=== PATIENT | female | born 1950 | race Caucasian/White ===

== ENCOUNTER 2017-07-19 10:08 | Inpatient (IN) ==
[2017-07-19] MEDS ORDERED: ENOXAPARIN 100 MG/ML SYRINGE SUBCUT STA (10:23)
[2017-07-19] MEDS ORDERED: MORPHINE 2 MG/1 ML SYRINGE IV PRN ×2 (10:23→18:14)
[2017-07-19] MEDS ORDERED: ASPIRIN 325 MG TABLET PO STA (10:23)
[2017-07-19] MEDS ORDERED: ONDANSETRON 4 MG/2 ML VIAL IV PRN ×2 (10:23→12:34)
[2017-07-19] MEDS ORDERED: ALUM/MAG/SIMETH/LIDO VISC 1:1 30 ML BOTTLE PO STA (10:27)
[2017-07-19] MEDS ORDERED: FAMOTIDINE 20 MG/2 ML VIAL IV STA (10:27)
[2017-07-19] MEDS ORDERED: NITROGLYCERIN SL 0.4 MG TABLET SL PRN (10:27)
[2017-07-19] MEDS ORDERED: NITROGLYCERIN 2% OINT 1 INCH/GM PACK TOP STA (10:27)
[2017-07-19] MEDS ORDERED: ENOXAPARIN 100 MG/ML SYRINGE SUBCUT ONE (10:31)
[2017-07-19] MEDS ORDERED: ASPIRIN 325 MG TABLET ONE (10:31)
--- NOTE | 2017-07-19 10:33 | Emergency Department Note ---
Cecilio Huertas Manpreet, am scribing for, and in the presence of, Shai Handley MD 10: 31. Emmanuelle Huertas James D, MD, personally performed the services described in this documentation, ascribed by Tomasz Hernandes in my presence, and it is both accurate and complete . Arrival - Arrival Chief Complaint: Chest Pain Stated Complaint: severe chest pains ED Nursing Triage Note: c/o mid-sternal chest pain radiating into bilateral arms onset 0930 while working. Describes as pressure. +shortness of breath. + nausea. +diaphoresis. Hyperventaliting at present. Mode of Arrival: Wheelchair Limitations: No Limitations Source: Patient Time Seen by Provider: 07/19/17 10:23 - History of Present Illness HPI Narrative: Pt is a 67 y/o female who presents to the ED with CC of mid-sternal CP onset at 0930 at work today. Pt initially thought the pain was just acid reflux but was concerned and called EMS after it did not go away. Pt states on the way to the ED, she was walking up a hill which worsened the pain. Pt also c/o SOB, nausea, and "heaviness to arms." Pt denies cough, dysuria, fever, or chills. No other pains/complaints reported to the ED. Onset (ago): hour(s) (at 0930) Consistency: constant Severity: moderate Quality: burning Date of Last Menstrual Period: hyst Allergies/Adverse Reactions: Allergies Allergy/AdvReac Type Severity Reaction Status Date / Time No Known Allergies Allergy Verified 07/19/17 10:24 Home Medications: Home Medications Medication Instructions Recorded Confirmed Type Esomeprazole Magnesium [Nexium] 40 mg PO DAILY 10/12/15 11/21/15 History Hydroxychloroquine [Plaquenil] 200 mg PO BID 10/12/15 11/21/15 History Butalb/Acetaminophen/Caffeine 2 each PO Q6-8H #20 tablet 11/21/15 Rx [Esgic 50-325-40 mg Tablet] Promethazine Supp [Phenergan Supp] 25 mg RECTAL Q6H #16 supp 11/21/15 Rx Review of System - Review of System 12 point system: reviewed and no additional remarkable complaints except as stated - Review of System Constitutional: Absent: chills, fever Respiratory: Present: respiratory distress. Absent: cough Cardiovascular: Present: chest pain Gastrointestinal: Absent: abdominal pain, nausea, vomiting, diarrhea Genitourinary female: Absent: dysuria Musculoskeletal: Absent: arm pain ("Heaviness to arms") Neurological: Absent: headache, weakness, numbness ("Heaviness to arms") Medical,Surgical,& Family Hx - Medical History Rheumatology: History of;: Rheumatoid Arthritis Gastrointestinal: History of: GERD - Surgical History Reproductive Surgeries: Surgical HX of;: Hysterectomy - Social History Smoking Status: Never smoker Frequency of Alcohol Use: None Type of Drug Use: None Exam Vital Signs: Vital Signs Temperature 97.9 F 07/19/17 10:10 Pulse Rate 91 H 07/19/17 10:10 Respiratory Rate 24 07/19/17 10:10 Blood Pressure 148/78 07/19/17 10:10 O2 Sat by Pulse Oximetry 100 07/19/17 10:10 GENERAL: This is a well-nourished well-developed white female in no apparent distress. VITAL SIGNS: Reviewed HEENT: Head is atraumatic and normocephalic. Pupils are equal round react to light. Extraocular movements are intact. Oropharynx is benign with moist mucous membranes. NECK: Neck is soft and supple without tenderness. There are no masses. There is no lymphadenopathy. LUNGS: Lungs are clear to auscultation. Chest rises symmetrically. There is minimal chest wall tenderness anteriorly. CV: Heart is regular rate and rhythm without murmurs rubs or gallops. ABDOMEN: Abdomen is soft, nontender to palpation. There are no abdominal abnormal masses palpated. There is no organomegaly. Bowel sounds are present and active. SKIN: Skin is warm and dry. No rash. EXTREMITIES: Patient has full range of motion without tenderness. There is no pedal edema. NEUROLOGIC: Awake alert and oriented 4. Cranial nerves II through XII are grossly intact. Motor is 5 over 5 in all extremities bilaterally. Course - Consultations Consultation #1: Discussed with Dr. Arreguin. Patient will be admitted to their service. Initial orders written for him. Care will be assumed by him upon arrival to the [facility]. Time: 11:27 Results - Labs CBC & BMP: 07/19/17 10:35 Lab Results: I have reviewed the patients labs Labs: Laboratory Tests 07/19/17 10:35 Troponin I < 0.015 - EKG EKG results: interpreted by ERMD (EKG: Sinus rhythm with sinus arrhythmia, rate 86, nonspecific ST-T wave changes.) - Diagnostic Findings Procedure: Chest x-ray: image reviewed by me (No infiltrates, no pleural effusions.) Disposition Clinical Impression: Chest pain
[2017-07-19] MEDS ORDERED: ONDANSETRON 4 MG/2 ML VIAL ONE (10:44)
[2017-07-19] MEDS ORDERED: MORPHINE 2 MG/1 ML SYRINGE ONE (10:44)
[2017-07-19] MEDS ORDERED: NITROGLYCERIN 2% OINT 1 INCH/GM PACK TOP ONE (10:54)
[2017-07-19] MEDS ORDERED: FAMOTIDINE 20 MG/2 ML VIAL IV ONE (10:54)
[2017-07-19] MEDS ORDERED: ALUM/MAG/SIMETH/LIDO VISC 1:1 30 ML BOTTLE PO ONE (10:54)
[2017-07-19 10:56] LABS: Basophils # 0.1 10*3/uL (0.0-0.2); Basophils % 1.3 % (0.0-0.8); Eosinophils # 0.1 10*3/uL (0.0-0.87); Eosinophils % 2.4 % (0.00-10.9); Hematocrit 42.2 VOL% (35.7-47.0); Hemoglobin 13.9 GM/DL (12.0-16.0); Immature Granulocytes % 0.2 %; Immature Granulocytes Absolute 0.01 #; Lymphocytes # 1.6 10*3/uL (1.4-4.0); Lymphocytes % 34.8 % (21.3-54.2); Mean Corpuscular HGB Conc 32.9 GM/DL (32-36); Mean Corpuscular Hemoglobin 30 PG (27-34); Mean Corpuscular Volume 91.1 FL (87-102); Mean Platelet Volume 10.2 FL (9.6-12.0); Monocytes # 0.4 10*3/uL (0.11-0.8); Neutrophils # 2.5 10*3/uL (1.4-7.4); Neutrophils % 53.3 % (38.7-73.9); Platelet Count 230 T/CUMM (130-400); Red Blood Count 4.63 MC/CUMM (3.8-5.5); Red Cell Distribution Width 12.4 % (9.3-17.3); White Blood Count 4.7 T/CUMM (4-12)
[2017-07-19] MEDS ORDERED: LORazepam 2 MG/1 ML VIAL ONE (11:04)
--- NOTE | 2017-07-19 11:06 | XRay Report ---
Portable chest Exam date: 07/19/2017 10:23 AM Indication: Shortness of breath, cough chest pain Comparison: January 11, 2010 Findings: Cardiomediastinal contours are stable. Lungs are clear bilaterally. No acute osseous abnormalities. Visualized upper abdomen demonstrates no acute pathology. Impression: No acute cardiopulmonary findings PROCEDURE INTERPRETED AT [facility] DEPARTMENT OF RADIOLOGY Final Report Signed by: Timothy Ross
[2017-07-19 11:38] LABS: Alanine Aminotransferase 25 U/L (13-56); Albumin 3.8 G/DL (3.4-5.0); Alkaline Phosphatase 88 U/L (45-117); Aspartate Amino Transferase 17 U/L (0-37); Bilirubin,Total < 0.39 MG/DL (0.2-1.0); Blood Urea Nitrogen 17 MG/DL (7-18); Calcium 9.3 MG/DL (8.5-10.1); Glucose 95 MG/DL (74-106); Osmolality,Calculated 284.1 MOS/KG (273-304); Potassium 4.5 MMOL/L (3.5-5.1); Sodium 142 MMOL/L (136-145); Total Protein 6.6 G/DL (6.4-8.3)
[2017-07-19 12:10] LABS: PT Patient Result 10.1 SECS
[2017-07-19] MEDS ORDERED: SODIUM CHLORIDE 0.9% 1,000 ML IV SCH (12:34)
[2017-07-19] MEDS ORDERED: ACETAMINOPHEN 325 MG TABLET PO PRN (12:34)
--- NOTE | 2017-07-19 13:41 | EKG Report ---
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
--- NOTE | 2017-07-19 13:46 | EKG Report ---
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
--- NOTE | 2017-07-19 15:56 | Cardiology Consult Note ---
<Lynn Santoro E - Last Filed: 07/19/17 16:00> History of Present Illness - Consult Narrative History of present illness: Ms. Espitia is a 67 year old female CC: Harvey Arreguin, - Home Medications and Allergies Home Medications: Home Medications Medication Instructions Recorded Confirmed Type Hydroxychloroquine [Plaquenil] 200 mg PO BID 10/12/15 07/19/17 History Metoprolol Succinate Xl [Toprol Xl] 25 mg PO DAILY 07/19/17 07/19/17 History Pantoprazole Tab [Protonix Tab] 40 mg PO QAM 07/19/17 07/19/17 History Allergies/Adverse Reactions: Allergies Allergy/AdvReac Type Severity Reaction Status Date / Time No Known Allergies Allergy Verified 07/19/17 10:24 Medical,Surgical,& Family Hx - Medical History Neurology: History of: Migraine Rheumatology: History of;: Rheumatoid Arthritis Gastrointestinal: History of: GERD - Surgical History Reproductive Surgeries: Surgical HX of;: Hysterectomy - Social History Smoking Status: Never smoker Frequency of Alcohol Use: None Type of Drug Use: None Physical Examination Vital Signs Temp Pulse Resp BP Pulse Ox 97.9 F 91 H 24 148/78 100 07/19/17 10:10 07/19/17 10:10 07/19/17 10:10 07/19/17 10:10 07/19/17 10:10 Result/EKG - Labs CBC & BMP: 07/19/17 10:35 07/19/17 10:35 Labs: Laboratory Results - last 24 hr 07/19/17 07/19/17 07/19/17 10:35 10:35 10:35 WBC 4.7 RBC 4.63 Hgb 13.9 Hct 42.2 MCV 91.1 MCH 30 MCHC 32.9 RDW 12.4 Plt Count 230 MPV 10.2 Neut % (Auto) 53.3 Lymph % (Auto) 34.8 Gillespie % (Auto) 8.0 Eos % (Auto) 2.4 Baso % (Auto) 1.3 H Neut # (Auto) 2.5 Lymph # (Auto) 1.6 Gillespie # (Auto) 0.4 Eos # (Auto) 0.1 Baso # (Auto) 0.1 Immature Gran % 0.2 Nucleated RBC % 0.0 Immature Gran # 0.01 Nucleated RBCs # 0.00 Immature Plt Fraction 0.0 INR PT Patient/Control Mix Circ Anticoag PTT Sodium 142 Potassium 4.5 Chloride 110 H Carbon Dioxide 26 Anion Gap 10.5 BUN 17 Creatinine 1.10 H GFR Calculation 62 BUN/Creatinine Ratio 15.00 Glucose 95 Calculated Osmolality 284.1 Calcium 9.3 Total Bilirubin < 0.39 AST 17 ALT 25 Alkaline Phosphatase 88 Troponin I < 0.015 Total Protein 6.6 Albumin 3.8 Globulin 2.8 Albumin/Globulin Ratio 1.3 07/19/17 07/19/17 11:51 13:31 WBC RBC Hgb Hct MCV MCH MCHC RDW Plt Count MPV Neut % (Auto) Lymph % (Auto) Gillespie % (Auto) Eos % (Auto) Baso % (Auto) Neut # (Auto) Lymph # (Auto) Gillespie # (Auto) Eos # (Auto) Baso # (Auto) Immature Gran % Nucleated RBC % Immature Gran # Nucleated RBCs # Immature Plt Fraction INR 1.0 PT Patient/Control Mix 10.1 Circ Anticoag PTT 30.0 Sodium Potassium Chloride Carbon Dioxide Anion Gap BUN Creatinine GFR Calculation BUN/Creatinine Ratio Glucose Calculated Osmolality Calcium Total Bilirubin AST ALT Alkaline Phosphatase Troponin I 0.366 H D Total Protein Albumin Globulin Albumin/Globulin Ratio <Harvey Arreguin - Last Filed: 07/19/17 16:14> Assessment and Plan (1) Extremity numbness Status: Acute Current Visit: Yes (2) Dyspnea on effort Status: Acute Current Visit: Yes (3) Chest pain Status: Acute Current Visit: Yes History of Present Illness - Consult Narrative History of present illness: Ms. Espitia is a 67 year old female CC: Harvey Arreguin DO Physical Examination Vital Signs Temp Pulse Resp BP Pulse Ox 97.9 F 91 H 24 148/78 100 07/19/17 10:10 07/19/17 10:10 07/19/17 10:10 07/19/17 10:10 07/19/17 10:10 Result/EKG - Labs CBC & BMP: 07/19/17 10:35 07/19/17 10:35 Labs: Laboratory Results - last 24 hr 07/19/17 07/19/17 07/19/17 10:35 10:35 10:35 WBC 4.7 RBC 4.63 Hgb 13.9 Hct 42.2 MCV 91.1 MCH 30 MCHC 32.9 RDW 12.4 Plt Count 230 MPV 10.2 Neut % (Auto) 53.3 Lymph % (Auto) 34.8 Gillespie % (Auto) 8.0 Eos % (Auto) 2.4 Baso % (Auto) 1.3 H Neut # (Auto) 2.5 Lymph # (Auto) 1.6 Gillespie # (Auto) 0.4 Eos # (Auto) 0.1 Baso # (Auto) 0.1 Immature Gran % 0.2 Nucleated RBC % 0.0 Immature Gran # 0.01 Nucleated RBCs # 0.00 Immature Plt Fraction 0.0 INR PT Patient/Control Mix Circ Anticoag PTT Sodium 142 Potassium 4.5 Chloride 110 H Carbon Dioxide 26 Anion Gap 10.5 BUN 17 Creatinine 1.10 H GFR Calculation 62 BUN/Creatinine Ratio 15.00 Glucose 95 Calculated Osmolality 284.1 Calcium 9.3 Total Bilirubin < 0.39 AST 17 ALT 25 Alkaline Phosphatase 88 Troponin I < 0.015 Total Protein 6.6 Albumin 3.8 Globulin 2.8 Albumin/Globulin Ratio 1.3 07/19/17 07/19/17 11:51 13:31 WBC RBC Hgb Hct MCV MCH MCHC RDW Plt Count MPV Neut % (Auto) Lymph % (Auto) Gillespie % (Auto) Eos % (Auto) Baso % (Auto) Neut # (Auto) Lymph # (Auto) Gillespie # (Auto) Eos # (Auto) Baso # (Auto) Immature Gran % Nucleated RBC % Immature Gran # Nucleated RBCs # Immature Plt Fraction INR 1.0 PT Patient/Control Mix 10.1 Circ Anticoag PTT 30.0 Sodium Potassium Chloride Carbon Dioxide Anion Gap BUN Creatinine GFR Calculation BUN/Creatinine Ratio Glucose Calculated Osmolality Calcium Total Bilirubin AST ALT Alkaline Phosphatase Troponin I 0.366 H D Total Protein Albumin Globulin Albumin/Globulin Ratio
--- NOTE | 2017-07-19 15:58 | EKG Report ---
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
--- NOTE | 2017-07-19 16:05 | Family Practice History&Phys ---
Assessment and Plan (1) Extremity numbness Status: Acute Assessment and plan: 07/19/2017: Unsure if this is a issue with hyperventilation. Nonetheless he could be atypical cardiac signs and will get cardiology to see Current Visit: Yes (2) Dyspnea on effort Status: Acute Assessment and plan: 07/19/2017: Oxygen as needed for shortness of breath. Current Visit: Yes (3) Chest pain Status: Acute Assessment and plan: 07/19/2017: Has been given appropriate medications at this time cardiology to see. Will monitor cardiac ices. Current Visit: Yes History of Present Illness Chief complaint: Chest pain, shortness of breath History of present illness: Ms. Espitia is a 67 year old female Lives in [place], but her doctors are in [place] because daughter works at [employer]. Comes in to the emergency room today by car complaining of sudden onset of chest pain while at work. States that it was a heavy pressure in the midsternal area. She did have numbness and tingling in her lips and then started getting some numbness in her arms as well. I questioned her about hyperventilating and she admits that she may have done some on her way to the hospital. Has never had chest pain before. Has never had a cardiac work up before. Denies any known strain either in the last couple of days or today. States that it occurred while she was "moving things around" at work. It did go up into her jaw, she also had some mild nausea but no vomiting. Has no cardiac history, does not smoke or drink. States that her lipids have been good from [place] lab. Admits that she has had reflux in the past and takes medication for this she is also had esophageal stricture with dilatation. Family history includes a mother that had congestive heart failure. Her father was paralyzed. At this time on admission to the emergency room she was given appropriate medications including aspirin and Lovenox and placed on nitroglycerin. We are giving her a beta-lew in the room here. 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 Her initial troponin was negative at 0.014, this did go up to about 0.336 After 2 hours. Denies any shortness of breath at this time or other constitutional symptoms she is very alert and oriented. Her heart rate is normal and it does look sinus rhythm. Please see other lab Home Medications Medication Instructions Recorded Confirmed Type Hydroxychloroquine [Plaquenil] 200 mg PO BID 10/12/15 07/19/17 History Metoprolol Succinate Xl [Toprol Xl] 25 mg PO DAILY 07/19/17 07/19/17 History Pantoprazole Tab [Protonix Tab] 40 mg PO QAM 07/19/17 07/19/17 History Allergies Allergy/AdvReac Type Severity Reaction Status Date / Time No Known Allergies Allergy Verified 07/19/17 10:24 12 point system: reviewed and no additional remarkable complaints except as stated (That mentioned above in the history and physical.) Medical,Surgical,& Family Hx - Medical History Neurology: History of: Migraine Rheumatology: History of;: Rheumatoid Arthritis Gastrointestinal: History of: GERD - Surgical History Reproductive Surgeries: Surgical HX of;: Hysterectomy - Social History Smoking Status: Never smoker Frequency of Alcohol Use: None Type of Drug Use: None Exam - Constitutional Vitals: Period Temp Pulse Resp BP Sys/Padilla Pulse Ox Last 24 Hr 97.6 F-97.9 F 73-91 16-24 112-153/72-94 97-100 Exam: Generally a very alert and oriented female. Is very cognitive answers all questions and she works at [employer]. Has no psychological or emotional issues she is noted at this time HEENT pupils are equally reactive to light extraocular movements are intact neck is supple and trachea is midline Cardiovascular rate is regular no gallop or rub or murmur is appreciated. Lungs are clear bilaterally I do not appreciate any wheezing rales or rhonchi Abdomen soft nondistended nontender with positive bowel sounds. Patient has had normal bowel and bladder function Extremities no clubbing cyanosis or edema. She admits to periodic numbness in her arms and hands Neurologically fully intact at this time except for numbness in her arms which seems to come and go Results - Labs CBC & BMP: 07/19/17 10:35 07/19/17 10:35
--- NOTE | 2017-07-19 16:46 | Cardiology Consult Note ---
Assessment and Plan - Time spent with patient Time spent with patient: Greater than 30 minutes (1) Obesity (BMI 30.0-34.9) Status: Chronic Assessment and plan: SEE PLAN OF CARE LISTED BELOW Current Visit: Yes (2) Sleep disorder Status: Chronic Assessment and plan: SEE PLAN OF CARE LISTED BELOW Current Visit: Yes (3) Chest pain Status: Acute Assessment and plan: SEE PLAN OF CARE LISTED BELOW Current Visit: Yes (4) Dyspnea on effort Status: Acute Assessment and plan: SEE PLAN OF CARE LISTED BELOW Current Visit: Yes (5) Thyroid enlargement Status: Acute Assessment and plan: SEE PLAN OF CARE LISTED BELOW Current Visit: Yes History of Present Illness - Data of Consult Patient: new to practice Consult date: 07/19/17 Requesting Physician: Harvey Arreguin - Consult Narrative Reason for consult: Chest pain, shortness of breath History of present illness: 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 Espitia, 67 WF, with risk factors significant for obesity. Patient presented to the emergency department this morning with complaints of acute chest pain in the center of her chest. She reports she has never had this type of discomfort before. Describes as heavy and sharp sensation in the midsternal area radiating to her jaws and down her arms causing her upper arms to feel heavy. This began occurring this morning while she was at work. Initially, she felt this to be GI in nature as she has a history of esophageal stricture and GERD. However, this continued to occur and worsen in its intensity. When he began to radiate to her neck and arms began to take her breath away. She states that movement and walking re-create the discomfort, rest alleviates the discomfort. She rates the discomfort as a 7 on a scale of 1-10. She is currently chest pain-free. She is tender to touch in the mid chest area but this is not the type of discomfort for which she sought medical advice. Two sets of cardiac biomarkers have been obtained. The first was within normal limits and the second troponin is noted to be 0.366. EKG does not reveal an acute IA. She has received aspirin, therapeutic dose of Lovenox, beta- blockade. Initially, she was given Nitropaste that she has a history of severe migraines and this was aggravating her headache. Therefore, this was discontinued. Will continue to cycle her cardiac biomarkers, monitor her EKG. Fasting lipid profile in the morning. Echocardiogram has been ordered. D- dimer stat. I will further discuss with Dr. Davis and await additional recommendations. Patient is NPO at this time. ASSESSMENT/PLAN: 1. CHEST PAIN - concerning for angina. Also concerning for PE. Continue cycle cardiac biomarkers, d-dimer stat. Echocardiogram has been ordered. She is received therapeutic dosing of Lovenox and aspirin, beta-blockade. 2. SOB - chest x-ray reveals no acute abnormality. She is anxious and some of this may be hyperventilating, she acknowledges this. However, may be an anginal equivalent as well will treat as such. 3. OBESITY - dietary counseling prior to discharge 4. SLEEP DISORDER - concerning for sleep apnea. She does snore heavily and told her breath per her . Outpatient sleep study at discharge 5. THYROID ENLARGEMENT - thyroid ultrasound. TSH/T4 CC: Harvey Arreguin DO - Home Medications and Allergies Home Medications: Home Medications Medication Instructions Recorded Confirmed Type Hydroxychloroquine [Plaquenil] 200 mg PO BID 10/12/15 07/19/17 History Metoprolol Succinate Xl [Toprol Xl] 25 mg PO DAILY 07/19/17 07/19/17 History Pantoprazole Tab [Protonix Tab] 40 mg PO QAM 07/19/17 07/19/17 History Allergies/Adverse Reactions: Allergies Allergy/AdvReac Type Severity Reaction Status Date / Time No Known Allergies Allergy Verified 07/19/17 10:24 Review of systems: REVIEW OF SYSTEMS: - Constitutional Constitutional: Present: Fatigue, heavy and loud snoring. Absent: syncope, anorexia, night sweats - EENT Eyes: Absent: blurry vision, loss of vision, diplopia Ears: Absent: decreased hearing, ear pain, ear discharge - Cardiovascular Cardiovascular: Present: chest pain with exertion. Dyspnea on exertion. Denies edema, palpitations. Absent: chest pain with deep breath, claudication - Respiratory Respiratory: Present: LOZADA, cough. Absent: wheezing, hemoptysis, change in phlegm color - Gastrointestinal Gastrointestinal: Present: constipation. Absent: abdominal pain, hematemesis , hematochezia, melena, change in bowel habits, nausea - Genitourinary Genitourinary: Absent: difficulty urinating, dysuria, urinary hesitancy, flank pain - Musculoskeletal Musculoskeletal: Present: back pain Absent: joint swelling, muscle cramps, muscle weakness - Neurological Neurological: Present: normal gait without frequent falls. Absent: dizziness, hemiparesis - Psychiatric Psychiatric: Anxiety is present. Absent: depression, difficulty concentrating - Endocrine Endocrine: Present: fatigue. Absent: cold intolerance, heat intolerance, polyuria, polyphagia, polydipsia - Hematologic/Lymphatic Hematologic/Lymphatic: Present: easy bruising. Absent: easy bleeding -Integumentary Integumentary: Absent: lesions, rashes, skin breakdown Medical,Surgical,& Family Hx - Medical History Cardio: No history of: CAD, Hypertension, IA, PVD Neurology: History of: Migraine Endocrine: No history of: Diabetes Mellitus (NIDDM), Dyslipidemia Rheumatology: History of;: Rheumatoid Arthritis Gastrointestinal: History of: GERD - Surgical History Reproductive Surgeries: Surgical HX of;: Hysterectomy - Social History Smoking Status: Never smoker Frequency of Alcohol Use: None Type of Drug Use: None Physical Examination Vital Signs Temp Pulse Resp BP Pulse Ox 97.9 F 91 H 24 148/78 100 07/19/17 10:10 07/19/17 10:10 07/19/17 10:10 07/19/17 10:10 07/19/17 10:10 Exam: General: [Appears well with no apparent distress.] [Pleasant and cooperative. ] [Appears comfortable.] HEENT: [PERRL, normocephalic, atraumatic. Mucous membranes moist. No jaundice noted. Conjunctiva moist and clear, sclerae anicteric] Neck: No JVD/HJR. Bilobar enlargement of the thyroid noted. No carotid bruit appreciated Cardiac: [Regular rate and rhythm.] [No murmur rub or gallop.] Lungs: [Clear to auscultation without accessory muscle use to assist the respiratory pattern.] Not requiring oxygen Abdomen: Soft, bowel sounds normoactive. Nontender and nondistended. No abdominal bruit or thrill noted. No masses noted. Musculoskeletal: No fluid collection. Decreased range of motion is noted. Extremities: No clubbing, cyanosis noted. [ No edema noted.] Upper extremity pulses 2+. Lower extremity pulses 2+. Capillary refill less than 3 seconds. Skin: No unusual lesions or rashes. No skin breakdown appreciated. Neuro: Awake, alert and oriented 3. Moves all extremities well without hemiparesis or paralysis. No essential tremor is appreciated. Result/EKG - Labs CBC & BMP: 07/19/17 10:35 07/19/17 10:35 Lab Results: I have reviewed the past 24 hour labs Labs: Laboratory Results - last 24 hr 07/19/17 07/19/17 07/19/17 10:35 10:35 10:35 WBC 4.7 RBC 4.63 Hgb 13.9 Hct 42.2 MCV 91.1 MCH 30 MCHC 32.9 RDW 12.4 Plt Count 230 MPV 10.2 Neut % (Auto) 53.3 Lymph % (Auto) 34.8 [place] % (Auto) 8.0 Eos % (Auto) 2.4 Baso % (Auto) 1.3 H Neut # (Auto) 2.5 Lymph # (Auto) 1.6 [place] # (Auto) 0.4 Eos # (Auto) 0.1 Baso # (Auto) 0.1 Immature Gran % 0.2 Nucleated RBC % 0.0 Immature Gran # 0.01 Nucleated RBCs # 0.00 Immature Plt Fraction 0.0 INR PT Patient/Control Mix Circ Anticoag PTT Sodium 142 Potassium 4.5 Chloride 110 H Carbon Dioxide 26 Anion Gap 10.5 BUN 17 Creatinine 1.10 H GFR Calculation 62 BUN/Creatinine Ratio 15.00 Glucose 95 Calculated Osmolality 284.1 Calcium 9.3 Total Bilirubin < 0.39 AST 17 ALT 25 Alkaline Phosphatase 88 Troponin I < 0.015 Total Protein 6.6 Albumin 3.8 Globulin 2.8 Albumin/Globulin Ratio 1.3 07/19/17 07/19/17 11:51 13:31 WBC RBC Hgb Hct MCV MCH MCHC RDW Plt Count MPV Neut % (Auto) Lymph % (Auto) [place] % (Auto) Eos % (Auto) Baso % (Auto) Neut # (Auto) Lymph # (Auto) [place] # (Auto) Eos # (Auto) Baso # (Auto) Immature Gran % Nucleated RBC % Immature Gran # Nucleated RBCs # Immature Plt Fraction INR 1.0 PT Patient/Control Mix 10.1 Circ Anticoag PTT 30.0 Sodium Potassium Chloride Carbon Dioxide Anion Gap BUN Creatinine GFR Calculation BUN/Creatinine Ratio Glucose Calculated Osmolality Calcium Total Bilirubin AST ALT Alkaline Phosphatase Troponin I 0.366 H D Total Protein Albumin Globulin Albumin/Globulin Ratio - Diagnostic Findings Procedure: Chest x-ray: report reviewed by me - EKG EKG results: interpreted by me EKG shows: sinus rhythm Specialty Discharge - Follow Up or Referrals Follow up with: Patience Andersen MD [Physician] - (ooutpatient sleep study evaluation)
[2017-07-19 17:53] LABS: Free T4 (Free Thyroxine) 1.01 NG/DL (0.76-1.46); Thyroid Stimulating Hormone 0.574 uIU/ml (0.358-3.74)
[2017-07-19] MEDS ORDERED: TICAGRELOR 90 MG TABLET PO ONE (18:11)
[2017-07-19] MEDS ORDERED: HYDROXYCHLOROQUINE 200 MG TABLET PO SCH (21:00)
[2017-07-19] MEDS: ROSUVASTATIN 20 MG TABLET PO SCH (21:27)
[2017-07-19] MEDS: DOCUSATE SODIUM 100 MG CAPSULE PO SCH (21:27)
[2017-07-19] MEDS: ENOXAPARIN 100 MG/ML SYRINGE SUBCUT SCH (21:27)
[2017-07-19] MEDS: METOPROLOL SUCCINATE XL 50 MG TABLET PO SCH (21:28)
[2017-07-20 04:54] LABS: Basophils % 0.8 % (0.0-0.8); Eosinophils # 0.1 10*3/uL (0.0-0.87); Eosinophils % 2.2 % (0.00-10.9); Hematocrit 41.2 VOL% (35.7-47.0); Hemoglobin 13.3 GM/DL (12.0-16.0); Immature Granulocytes % 0.2 %; Immature Granulocytes Absolute 0.01 #; Lymphocytes # 1.6 10*3/uL (1.4-4.0); Lymphocytes % 31.8 % (21.3-54.2); Mean Corpuscular HGB Conc 32.3 GM/DL (32-36); Mean Corpuscular Hemoglobin 30 PG (27-34); Mean Corpuscular Volume 92.6 FL (87-102); Mean Platelet Volume 10.3 FL (9.6-12.0); Monocytes # 0.4 10*3/uL (0.11-0.8); Monocytes % 7.9 % (1.7-12.7); Neutrophils # 2.8 10*3/uL (1.4-7.4); Neutrophils % 57.1 % (38.7-73.9); Platelet Count 222 T/CUMM (130-400); Red Blood Count 4.45 MC/CUMM (3.8-5.5); Red Cell Distribution Width 12.6 % (9.3-17.3); White Blood Count 4.9 T/CUMM (4-12)
[2017-07-20 05:24] LABS: Calcium 9.5 MG/DL (8.5-10.1); Magnesium 2.4 MG/DL (1.8-2.4); Potassium 4.8 MMOL/L (3.5-5.1)
[2017-07-20 05:28] LABS: CKMB % 19.9 %
[2017-07-20 05:33] LABS: Troponin I Only 16.9 NG/ML (0.00-0.045)
[2017-07-20 07:27] LABS: Apearance,Urine CLEAR (Clear); Bacteria,Urine Occasional /HPF (Few); Bilirubin,Urine Negative (Negative); Blood, Urine Negative (Negative); Glucose,Urine (UA) Negative (Negative); Ketones,Urine Negative (Negative); Nitrite,Urine Negative (Negative); Protein,Urine Negative; RBC,Urine <1 /HPF (0-4); Squamous Epithelial Cell,Urine Occasional /HPF (0-10); Urine Color Straw (Yellow); Urine Specific Gravity 1.006 (1.001-1.035); Urine Urobilinogen < 2.0 EU/DL (0.2-1.0); WBC,Urine 1 /HPF (0-6)
--- NOTE | 2017-07-20 07:50 | EKG Report ---
Stationary ECG Study [facility] Test Date: 07/20/2017 7:49:34 AM Pat Name: BRINA MENDES Department: Room: 264 Gender: F Sock Folder: BELIA : 1950 Requested by: Alli Davis Order Number: [id number] Andrei MD: KAILA SMITH Intervals [place] Rate: 80 P: 56 [place]: 154 QRS: 112 QRSD: 94 T: 17 QT: 380 QTc: 416 Interpretive Statements SINUS RHYTHM POSSIBLE RIGHT VENTRICULAR HYPERTROPHY Electronically Signed On 07-20-17 11:22:05 CDT by KAILA SMITH [email or web address]
--- NOTE | 2017-07-20 07:55 | Cardiology Progress Note ---
Assessment and Plan (1) NSTEMI (non-ST elevated myocardial infarction) Status: Acute Assessment and plan: 67-year-old female, presenting with non-STEMI. -Chest pain resolved with medical management. There is no significant arrhythmia, angina or hemodynamic instability. -Enzyme trend suggestive of non-STEMI. Minimal EKG changes. D-dimer negative. -Echo today -Continue aspirin. -Cont Brilinta -Full dose LMWH -Metoprolol to 50 mg twice daily. Blood pressure, heart rate well controlled. -Cont high-dose statin -Nitroglycerin patch and and NTG as needed -Morphine as needed for pain. -PPI. -Keep on telemetry. -March eat today. Plan for [facility] Saturday, d/w dr. Rousseau Current Visit: Yes (2) Obesity (BMI 30.0-34.9) Status: Chronic Current Visit: Yes (3) Sleep disorder Status: Chronic Current Visit: Yes (4) Thyroid enlargement Status: Acute Current Visit: Yes Cardiology - PN: Subj Interval history: The chest pain resolved. She is feeling fine. Troponin became markedly elevated. No significant arrhythmia on telemetry. Exam (Progress Note) - Constitutional Vitals: Period Temp Pulse Resp BP Sys/Padilla Pulse Ox Last 24 Hr 97.2 F-98.5 F 72-91 16-24 112-162/62-94 96-100 General appearance: normal weight, over weight - Head Head exam: Present: normal inspection. Absent: contusion - Eye Eye exam: Absent: conjunctival injection, scleral icterus Pupils: Present: normal accommodation. Absent: dilated - ENT ENT exam: Present: normal external ear exam - Neck Neck exam: Present: normal inspection - Respiratory Respiratory exam: Present: clear to auscultation bilaterally. Absent: chest wall tenderness - Cardiovascular Cardiovascular exam: Present: regular rate and rhythm. Absent: JVD, systolic murmur - GI/Abdominal GI/Abdominal exam: Present: normal bowel sounds. Absent: distended - Extremities Exam Extremities exam: Present: normal inspection, normal capillary refill. Absent: edema - Back Exam Back exam: Present: normal inspection - Neurological Exam Neurological exam: Present: alert, oriented X3 - Psychiatric Psychiatric exam: Present: normal affect, normal mood - Skin Skin exam: Present: normal color, warm. Absent: cyanosis Result/EKG - Labs CBC & BMP: 07/20/17 04:08 07/20/17 04:08 Lab Results: I have reviewed the past 24 hour labs Labs: Laboratory Results - last 24 hr 07/19/17 07/19/17 07/19/17 10:35 10:35 10:35 WBC 4.7 RBC 4.63 Hgb 13.9 Hct 42.2 MCV 91.1 MCH 30 MCHC 32.9 RDW 12.4 Plt Count 230 MPV 10.2 Neut % (Auto) 53.3 Lymph % (Auto) 34.8 [place] % (Auto) 8.0 Eos % (Auto) 2.4 Baso % (Auto) 1.3 H Neut # (Auto) 2.5 Lymph # (Auto) 1.6 [place] # (Auto) 0.4 Eos # (Auto) 0.1 Baso # (Auto) 0.1 Immature Gran % 0.2 Nucleated RBC % 0.0 Immature Gran # 0.01 Nucleated RBCs # 0.00 Immature Plt Fraction 0.0 INR PT Patient/Control Mix D-Dimer, Quantitative Circ Anticoag PTT Sodium 142 Potassium 4.5 Chloride 110 H Carbon Dioxide 26 Anion Gap 10.5 BUN 17 Creatinine 1.10 H GFR Calculation 62 BUN/Creatinine Ratio 15.00 Glucose 95 Calculated Osmolality 284.1 Calcium 9.3 Magnesium Total Bilirubin < 0.39 AST 17 ALT 25 Alkaline Phosphatase 88 Total Creatine Kinase CK-MB (CK-2) CK and CKMB Interp Troponin I < 0.015 Total Protein 6.6 Albumin 3.8 Globulin 2.8 Albumin/Globulin Ratio 1.3 Free T4 TSH 3rd Generation Urine Color Urine Appearance Urine pH Ur Specific [place] Urine Protein Urine Glucose (UA) Urine Ketones Urine Blood Urine Nitrate Urine Bilirubin Urine Urobilinogen Urine Leukocytes Urine RBC Urine WBC Ur Squamous Epith Cells Urine Bacteria Ur Culture Indicated? 07/19/17 07/19/17 07/19/17 11:51 13:31 16:50 WBC RBC Hgb Hct MCV MCH MCHC RDW Plt Count MPV Neut % (Auto) Lymph % (Auto) [place] % (Auto) Eos % (Auto) Baso % (Auto) Neut # (Auto) Lymph # (Auto) [place] # (Auto) Eos # (Auto) Baso # (Auto) Immature Gran % Nucleated RBC % Immature Gran # Nucleated RBCs # Immature Plt Fraction INR 1.0 PT Patient/Control Mix 10.1 D-Dimer, Quantitative Circ Anticoag PTT 30.0 Sodium Potassium Chloride Carbon Dioxide Anion Gap BUN Creatinine GFR Calculation BUN/Creatinine Ratio Glucose Calculated Osmolality Calcium Magnesium Total Bilirubin AST ALT Alkaline Phosphatase Total Creatine Kinase CK-MB (CK-2) CK and CKMB Interp Troponin I 0.366 H D 2.360 H D Total Protein Albumin Globulin Albumin/Globulin Ratio Free T4 TSH 3rd Generation Urine Color Urine Appearance Urine pH Ur Specific [place] Urine Protein Urine Glucose (UA) Urine Ketones Urine Blood Urine Nitrate Urine Bilirubin Urine Urobilinogen Urine Leukocytes Urine RBC Urine WBC Ur Squamous Epith Cells Urine Bacteria Ur Culture Indicated? 07/19/17 07/19/17 07/20/17 16:50 16:50 04:08 WBC 4.9 RBC 4.45 Hgb 13.3 Hct 41.2 MCV 92.6 MCH 30 MCHC 32.3 RDW 12.6 Plt Count 222 MPV 10.3 Neut % (Auto) 57.1 Lymph % (Auto) 31.8 [place] % (Auto) 7.9 Eos % (Auto) 2.2 Baso % (Auto) 0.8 Neut # (Auto) 2.8 Lymph # (Auto) 1.6 [place] # (Auto) 0.4 Eos # (Auto) 0.1 Baso # (Auto) 0.0 Immature Gran % 0.2 Nucleated RBC % 0.0 Immature Gran # 0.01 Nucleated RBCs # 0.00 Immature Plt Fraction 0.0 INR PT Patient/Control Mix D-Dimer, Quantitative <= 0.5 Circ Anticoag PTT Sodium Potassium Chloride Carbon Dioxide Anion Gap BUN Creatinine GFR Calculation BUN/Creatinine Ratio Glucose Calculated Osmolality Calcium Magnesium Total Bilirubin AST ALT Alkaline Phosphatase Total Creatine Kinase CK-MB (CK-2) CK and CKMB Interp Troponin I Total Protein Albumin Globulin Albumin/Globulin Ratio Free T4 1.01 TSH 3rd Generation 0.574 Urine Color Urine Appearance Urine pH Ur Specific [place] Urine Protein Urine Glucose (UA) Urine Ketones Urine Blood Urine Nitrate Urine Bilirubin Urine Urobilinogen Urine Leukocytes Urine RBC Urine WBC Ur Squamous Epith Cells Urine Bacteria Ur Culture Indicated? 07/20/17 07/20/17 07/20/17 04:08 04:08 06:22 WBC RBC Hgb Hct MCV MCH MCHC RDW Plt Count MPV Neut % (Auto) Lymph % (Auto) [place] % (Auto) Eos % (Auto) Baso % (Auto) Neut # (Auto) Lymph # (Auto) [place] # (Auto) Eos # (Auto) Baso # (Auto) Immature Gran % Nucleated RBC % Immature Gran # Nucleated RBCs # Immature Plt Fraction INR PT Patient/Control Mix D-Dimer, Quantitative Circ Anticoag PTT Sodium 143 Potassium 4.8 Chloride 111 H Carbon Dioxide 28 Anion Gap 8.8 BUN 16 Creatinine 1.00 GFR Calculation 71 BUN/Creatinine Ratio 16.00 Glucose 96 Calculated Osmolality 285.0 Calcium 9.5 Magnesium 2.4 Total Bilirubin AST ALT Alkaline Phosphatase Total Creatine Kinase 497 H CK-MB (CK-2) 98.9 H CK and CKMB Interp 19.9 Troponin I 16.900 H D Total Protein Albumin Globulin Albumin/Globulin Ratio Free T4 TSH 3rd Generation Urine Color Straw Urine Appearance Clear Urine pH 7.0 Ur Specific [place] 1.006 Urine Protein Negative Urine Glucose (UA) Negative Urine Ketones Negative Urine Blood Negative Urine Nitrate Negative Urine Bilirubin Negative Urine Urobilinogen < 2.0 H Urine Leukocytes Negative Urine RBC <1 Urine WBC 1 Ur Squamous Epith Cells Occasional Urine Bacteria Occasional Ur Culture Indicated? Not indicated - EKG EKG results: interpreted by me Specialty Discharge - Follow Up or Referrals Follow up with: Patience Andersen MD [Physician] - (ooutpatient sleep study evaluation)
--- NOTE | 2017-07-20 08:11 | Family Practice Progress Note ---
Family Practice - PN: Subj Interval history: Patient seen this morning. She slept well last night. Did not have any bhaskar chest pain and is on appropriate cardiac meds. Troponin did elevate significantly to 16. Appreciate cardiology services. Her vital signs were otherwise stable last night. We will continue to monitor. I will DC her Plaquenil for now as she states that this interferes with her metoprolol which I feel like she needs Exam (Progress Note) - Constitutional Vitals: Period Temp Pulse Resp BP Sys/Padilla Pulse Ox Last 24 Hr 97.2 F-98.5 F 72-91 16-24 112-162/59-94 96-100 Exam: Generally a very alert and oriented female. Is very cognitive answers all questions HEENT pupils are equally reactive to light extraocular movements are intact neck is supple and trachea is midline Cardiovascular rate is regular no gallop or rub or murmur is appreciated. Lungs are clear bilaterally I do not appreciate any wheezing rales or rhonchi Abdomen soft nondistended nontender with positive bowel sounds. Patient has had normal bowel and bladder function Extremities no clubbing cyanosis or edema. She admits to periodic numbness in her arms and hands Neurologically fully intact at this time except for numbness in her arms which seems to come and go Results - Labs CBC & BMP: 07/20/17 04:08 07/20/17 04:08 Assessment and Plan (1) Extremity numbness Status: Acute Assessment and plan: 07/19/2017: Unsure if this is a issue with hyperventilation. Nonetheless he could be atypical cardiac signs and will get cardiology to see Current Visit: Yes (2) Dyspnea on effort Status: Acute Assessment and plan: 07/19/2017: Oxygen as needed for shortness of breath. Current Visit: Yes (3) Chest pain Status: Acute Assessment and plan: 07/19/2017: Has been given appropriate medications at this time cardiology to see. Will monitor cardiac ices. Current Visit: Yes Specialty Discharge - Follow Up or Referrals Follow up with: Patience Andersen MD [Physician] - (ooutpatient sleep study evaluation)
[2017-07-20] MEDS ORDERED: METOPROLOL SUCCINATE XL 25 MG TABLET PO SCH (09:00)
[2017-07-20] MEDS: ASPIRIN EC 81 MG TABLET PO SCH (09:55)
[2017-07-20] MEDS: METOPROLOL SUCCINATE XL 50 MG TABLET PO SCH ×2 (09:56→21:31)
[2017-07-20] MEDS: DOCUSATE SODIUM 100 MG CAPSULE PO SCH ×2 (09:56→21:30)
[2017-07-20] MEDS: ENOXAPARIN 100 MG/ML SYRINGE SUBCUT SCH ×2 (09:56→21:30)
[2017-07-20] MEDS: PANTOPRAZOLE 40 MG TABLET PO SCH (09:56)
[2017-07-20] MEDS: TICAGRELOR 90 MG TABLET PO SCH ×2 (09:56→21:31)
--- NOTE | 2017-07-20 12:42 | ECHO Report ---
Sparkle Espitia Exam Date: 07/20/2017 08:01 Referring Physician: Technologist: bill Jones ARDMS, RVT Age: 67 Ht (in): 68 Wt (lb): 205 Gender: F Exam Location: [facility] Echo Indications: LOZADA, Extremity numbness, Chest pain, unspecified BP: 136 / 86 HR: 83 Rhythm: Sinus Technical Quality: IMPRESSIONS Normal left ventricular size, without hypertrophy. The mid to distal anterolateral segments are mildly hypokinetic, the remaining segments have normal systolic thickening. Estimated left ventricular ejection fraction 50%. Grade 1 diastolic dysfunction. Mild aortic valve sclerosis, without stenosis, without insufficiency. MEASUREMENTS (Male / Female) Normal Values 2D ECHO LV Diastolic Diameter PLAX 4.8 cm 4.2 - 5.9 / 3.9 - 5.3 cm LV Systolic Diameter PLAX 3.3 cm LV Fractional Shortening PLAX 32.2 % IVS Diastolic Thickness 1.0 cm 0.6 - 1.0 / 0.6 - 0.9 cm LVPW Diastolic Thickness 0.9 cm 0.6 - 1.0 / 0.6 - 0.9 cm RV Internal Dim ED PLAX 2.5 cm Aortic Root Diameter 3.1 cm LA Systolic Diameter LX 3.1 cm 3.0 - 4.0 / 2.7 - 3.8 cm DOPPLER TR Peak Velocity 206.0 cm/s TR Peak Gradient 17.0 mmHg FINDINGS Left Ventricle Normal left ventricular size, without hypertrophy. The mid to distal anterolateral segments are mildly hypokinetic, the remaining segments have normal systolic thickening. Estimated left ventricular ejection fraction 50%. Grade 1 diastolic dysfunction. Right Ventricle The right ventricle is normal in size and function. Right Atrium The right atrium is normal in size. Left Atrium The left atrium is normal in size. Mitral Valve Morphologically normal mitral valve without significant stenosis or prolapse. There is no mitral regurgitation. Aortic Valve The aortic valve is trileaflet and has normal motion. Mild aortic valve sclerosis, without stenosis or insufficiency. Tricuspid Valve Morphologically normal tricuspid valve without significant stenosis or regurgitation. Insufficient data to estimate pulmonary artery systolic pressure. Pulmonic Valve Morphologically normal pulmonic valve without significant stenosis. There is no pulmonic regurgitation. Pericardium Normal pericardium without effusion. Aorta Normal ascending aorta dimension. Alli Davis (Electronically Signed) Final Date: 20 July 2017 12:41
--- NOTE | 2017-07-20 13:54 | Ultrasound Report ---
Thyroid ultrasound. Indication: Thyroid enlargement. No prior studies. The thyroid gland measures borderline enlarged, the left lobe at 3.7 and bowel 0.9 x 1.2 cm in the left at 3.7 x 0.8 x 1.3 cm. There are two 2 mm hyperechoic lesions within the right lobe of the thyroid, and one 1 x 3 mm hypoechoic lesion in the left lobe. The gland is mildly heterogeneous with normal blood flow. Impression: Borderline enlarged gland with heterogeneous parenchyma. Multiple subcentimeter hypoechoic nodules are identified. The Ultrasound images were captured and stored. PROCEDURE INTERPRETED AT [facility] DEPARTMENT OF RADIOLOGY Final Report Signed by: Dr. Jen Freitas
[2017-07-20] MEDS: NITROGLYCERIN 0.2 MG/HR PATCH TRANSDERM SCH (19:36)
[2017-07-20] MEDS: ROSUVASTATIN 20 MG TABLET PO SCH (21:30)
[2017-07-21 04:50] LABS: Basophils # 0.1 10*3/uL (0.0-0.2); Eosinophils # 0.2 10*3/uL (0.0-0.87); Eosinophils % 2.9 % (0.00-10.9); Hemoglobin 13.8 GM/DL (12.0-16.0); Immature Granulocytes % 0.2 %; Immature Granulocytes Absolute 0.01 #; Lymphocytes # 1.8 10*3/uL (1.4-4.0); Lymphocytes % 35.4 % (21.3-54.2); Mean Corpuscular HGB Conc 32.9 GM/DL (32-36); Mean Corpuscular Hemoglobin 30 PG (27-34); Mean Corpuscular Volume 90.9 FL (87-102); Mean Platelet Volume 10.1 FL (9.6-12.0); Monocytes # 0.5 10*3/uL (0.11-0.8); Monocytes % 10.4 % (1.7-12.7); Neutrophils # 2.6 10*3/uL (1.4-7.4); Neutrophils % 50.1 % (38.7-73.9); Platelet Count 220 T/CUMM (130-400); Red Blood Count 4.62 MC/CUMM (3.8-5.5); Red Cell Distribution Width 12.5 % (9.3-17.3); White Blood Count 5.2 T/CUMM (4-12)
[2017-07-21 05:20] LABS: Calcium 9.3 MG/DL (8.5-10.1); Magnesium 2.2 MG/DL (1.8-2.4); Potassium 4.2 MMOL/L (3.5-5.1)
[2017-07-21] MEDS: NITROGLYCERIN 0.2 MG/HR PATCH TRANSDERM SCH (09:56)
[2017-07-21] MEDS: DOCUSATE SODIUM 100 MG CAPSULE PO SCH ×2 (09:56→21:29)
[2017-07-21] MEDS: METOPROLOL SUCCINATE XL 50 MG TABLET PO SCH ×2 (09:56→21:28)
[2017-07-21] MEDS: TICAGRELOR 90 MG TABLET PO SCH ×2 (09:56→21:28)
[2017-07-21] MEDS: PANTOPRAZOLE 40 MG TABLET PO SCH (09:56)
[2017-07-21] MEDS: ASPIRIN EC 81 MG TABLET PO SCH (09:56)
[2017-07-21] MEDS: ENOXAPARIN 100 MG/ML SYRINGE SUBCUT SCH ×2 (09:57→21:29)
--- NOTE | 2017-07-21 10:09 | Family Practice Progress Note ---
Family Practice - PN: Subj Interval history: Patient seen this morning. She slept well last night. Did not have any bhaskar chest pain and is on appropriate cardiac meds. Troponin did elevate significantly to 16. Appreciate cardiology services. Her vital signs were otherwise stable last night. We will continue to monitor. I will DC her Plaquenil for now as she states that this interferes with her metoprolol which I feel like she needs 07/21/2017: Patient seen this morning she is doing well had a good rest last night. Not having any bhaskar chest pain but she obviously had a small cardiac event. She is scheduled to have a cath tomorrow if she remains stable. And appreciate cardiology on this case. No changes otherwise. Her lab reveals a normal CBC, chemistry is normal as well including a creatinine 1.1. Her troponin bumped up to 16.9. Exam (Progress Note) - Constitutional Vitals: Period Temp Pulse Resp BP Sys/Padilla Pulse Ox Last 24 Hr 97.3 F-98.9 F 61-96 16-20 93-138/51-76 95-100 Results - Labs CBC & BMP: 07/21/17 04:24 07/21/17 04:24 Assessment and Plan (1) Extremity numbness Status: Acute Assessment and plan: 07/19/2017: Unsure if this is a issue with hyperventilation. Nonetheless he could be atypical cardiac signs and will get cardiology to see Current Visit: Yes (2) Dyspnea on effort Status: Acute Assessment and plan: 07/19/2017: Oxygen as needed for shortness of breath. Current Visit: Yes (3) Chest pain Status: Acute Assessment and plan: 07/19/2017: Has been given appropriate medications at this time cardiology to see. Will monitor cardiac ices. Current Visit: Yes Specialty Discharge - Follow Up or Referrals Follow up with: Patience Andersen MD [Physician] - (ooutpatient sleep study evaluation)
--- NOTE | 2017-07-21 12:55 | Cardiology Progress Note ---
Assessment and Plan (1) NSTEMI (non-ST elevated myocardial infarction) Status: Acute Assessment and plan: 67-year-old female, presenting with non-STEMI. -Chest pain resolved with medical management. There is no significant arrhythmia, angina or hemodynamic instability. Enzyme trend, symptoms suggestive of non-STEMI. -Echo showed distal anterolateral wall motion abnormality, preserved ejection fraction. She had minimal EKG changes -D-dimer negative. -Continue aspirin. -Cont Brilinta -Full dose LMWH -Metoprolol to 50 mg twice daily. Blood pressure, heart rate well controlled. -Cont high-dose statin -Nitroglycerin patch and and NTG as needed -Morphine as needed for pain. -PPI. -Keep on telemetry. -N.p.o. after midnight. Plan for [facility] Saturday, discussed with Dr. Rousseau, either him or Dr. Morrison Current Visit: Yes (2) Obesity (BMI 30.0-34.9) Status: Chronic Current Visit: Yes (3) Sleep disorder Status: Chronic Current Visit: Yes (4) Thyroid enlargement Status: Acute Current Visit: Yes Cardiology - PN: Subj Interval history: She is feeling fine. No recurrence of chest pain. Blood pressure, heart rate well controlled. Exam (Progress Note) - Constitutional Vitals: Period Temp Pulse Resp BP Sys/Padilla Pulse Ox Last 24 Hr 97.3 F-99.6 F 61-86 16-20 93-138/51-76 95-100 General appearance: normal weight, over weight - Head Head exam: Present: normal inspection, normocephalic - Eye Eye exam: Absent: conjunctival injection, scleral icterus, laceration to eyelids Pupils: Absent: dilated, irregular - ENT ENT exam: Present: normal external ear exam - Neck Neck exam: Present: normal inspection. Absent: thyromegaly - Respiratory Respiratory exam: Present: clear to auscultation bilaterally. Absent: chest wall tenderness - Cardiovascular Cardiovascular exam: Present: regular rate and rhythm. Absent: JVD, systolic murmur - GI/Abdominal GI/Abdominal exam: Present: normal bowel sounds. Absent: distended - Extremities Exam Extremities exam: Present: normal inspection, normal capillary refill. Absent: edema - Back Exam Back exam: Present: normal inspection - Neurological Exam Neurological exam: Present: alert, oriented X3 - Psychiatric Psychiatric exam: Present: normal affect, normal mood - Skin Skin exam: Present: normal color, warm. Absent: cyanosis Result/EKG - Labs CBC & BMP: 07/21/17 04:24 07/21/17 04:24 Lab Results: I have reviewed the past 24 hour labs Labs: Laboratory Results - last 24 hr 07/21/17 07/21/17 04:24 04:24 WBC 5.2 RBC 4.62 Hgb 13.8 Hct 42.0 MCV 90.9 MCH 30 MCHC 32.9 RDW 12.5 Plt Count 220 MPV 10.1 Neut % (Auto) 50.1 Lymph % (Auto) 35.4 [place] % (Auto) 10.4 Eos % (Auto) 2.9 Baso % (Auto) 1.0 H Neut # (Auto) 2.6 Lymph # (Auto) 1.8 [place] # (Auto) 0.5 Eos # (Auto) 0.2 Baso # (Auto) 0.1 Immature Gran % 0.2 Nucleated RBC % 0.0 Immature Gran # 0.01 Nucleated RBCs # 0.00 Immature Plt Fraction 0.0 Sodium 143 Potassium 4.2 Chloride 110 H Carbon Dioxide 28 Anion Gap 9.2 BUN 19 H Creatinine 1.10 H GFR Calculation 62 BUN/Creatinine Ratio 17.00 Glucose 91 Calculated Osmolality 286.0 Calcium 9.3 Magnesium 2.2 - EKG EKG results: interpreted by me Specialty Discharge - Follow Up or Referrals Follow up with: Patience Andersen MD [Physician] - (ooutpatient sleep study evaluation)
[2017-07-21] MEDS: ROSUVASTATIN 20 MG TABLET PO SCH (21:28)
[2017-07-22] MEDS: SODIUM CHLORIDE 0.9% 1,000 ML IV SCH ×2 (00:15→09:21)
[2017-07-22 06:10] LABS: Basophils % 0.8 % (0.0-0.8); Eosinophils # 0.2 10*3/uL (0.0-0.87); Eosinophils % 3.2 % (0.00-10.9); Hematocrit 39.5 VOL% (35.7-47.0); Hemoglobin 13.1 GM/DL (12.0-16.0); Immature Granulocytes % 0.2 %; Immature Granulocytes Absolute 0.01 #; Lymphocytes # 1.6 10*3/uL (1.4-4.0); Lymphocytes % 34.2 % (21.3-54.2); Mean Corpuscular HGB Conc 33.2 GM/DL (32-36); Mean Corpuscular Hemoglobin 30 PG (27-34); Mean Corpuscular Volume 90.8 FL (87-102); Mean Platelet Volume 10.4 FL (9.6-12.0); Monocytes # 0.4 10*3/uL (0.11-0.8); Neutrophils # 2.5 10*3/uL (1.4-7.4); Neutrophils % 52.6 % (38.7-73.9); Platelet Count 213 T/CUMM (130-400); Red Blood Count 4.35 MC/CUMM (3.8-5.5); Red Cell Distribution Width 12.6 % (9.3-17.3); White Blood Count 4.8 T/CUMM (4-12)
[2017-07-22 06:39] LABS: Calcium 8.5 MG/DL (8.5-10.1); Osmolality,Calculated 287.8 MOS/KG (273-304); Potassium 3.7 MMOL/L (3.5-5.1)
[2017-07-22 06:40] LABS: Calcium 8.5 MG/DL (8.5-10.1); Osmolality,Calculated 289.7 MOS/KG (273-304); Potassium 3.7 MMOL/L (3.5-5.1)
[2017-07-22] MEDS ORDERED: DIAZEPAM 5 MG TABLET PO ONE (06:40)
[2017-07-22] MEDS ORDERED: diphenhydrAMINE CAP 25 MG CAPSULE PO ONE (06:40)
[2017-07-22] MEDS ORDERED: SODIUM CHLORIDE 0.45% 1,000 ML IV SCH (07:00)
--- NOTE | 2017-07-22 07:06 | History and Physical Update ---
Sedation H&P Update - History and Physical H&P was reviewed, the patient examined and there: are no changes in the patients condition since last H&P was completed. - Dictation Physical: refer to H&P completed by admitting physician - Physical Exam Mental Status: alert and oriented Heart: regular rate and rhythm Lung: clear to auscultation Abdomen: within normal limits Vitals: within normal limits - Sedation Plan for Sedation: moderate Patient Consent: Procedure disscussed with patient and patinet has consented., Risks and benefits were discussed with patient,including infection,, bleeding, injury to surrounding structures, seizure, temporary nerve, Patient understands and accepts potential risks/benefits and agrees to, proceed. ASA Class: III Airway Assessment: Class III: Soft palate, base of uvula visible
--- NOTE | 2017-07-22 07:17 | EKG Report ---
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
[2017-07-22] MEDS: ENOXAPARIN 100 MG/ML SYRINGE SUBCUT SCH (07:54)
[2017-07-22] MEDS ORDERED: HEPARIN/NACL 0.9% 2 UNITS/ML 1,000 ML IV ONE (07:55)
[2017-07-22] MEDS ORDERED: LIDOCAINE 1% 20 ML VIAL ONE (07:55)
[2017-07-22] MEDS: ASPIRIN EC 81 MG TABLET PO SCH ×2 (07:57→08:41)
[2017-07-22] MEDS: TICAGRELOR 90 MG TABLET PO SCH ×3 (07:57→21:39)
[2017-07-22] MEDS: METOPROLOL SUCCINATE XL 50 MG TABLET PO SCH ×3 (07:58→21:39)
[2017-07-22] MEDS: PANTOPRAZOLE 40 MG TABLET PO SCH ×2 (07:58→08:42)
[2017-07-22] MEDS ORDERED: MIDAZOLAM 2 MG/2 ML VIAL ONE (08:10)
[2017-07-22] MEDS ORDERED: fentaNYL 100 MCG/2 ML VIAL ONE (08:12)
--- NOTE | 2017-07-22 08:57 | Cardiac Catheterization ---
Date of Procedure:: 07/22/17 Pre-op Diagnosis: Non-ST elevation myocardial infarction Post-op diagnosis: other (Small vessel coronary artery disease no high-grade epicardial stenosis) Procedure: Procedure: 1. Left heart catheterization resting hemodynamics 2. Selective left and right coronary 3. Proximal iliac angiography 4. Closure right femoral arteriotomy After consent was taken from the patient. Taken to the catheterization lab for left heart catheterization via the femoral artery. Time out was taken and recorded. 1% lidocaine was infiltrated in the skin and subcutaneous tissue overlying the right femoral artery. Modified Seldinger technique and an 18- gauge Cook needle was used for access to the right femoral artery. An 0.35 J- wire was advanced through the needle into the central aorta under fluoroscopy. A small skin was made and a 6 [place] sheath was placed over the wire. The sheath was aspirated and flushed. A JL46 was advanced over the wires in the left main coronary artery was selectively engaged. Multiple orthogonal views of the left system were obtained. The catheter was then exchanged over the wire. The sheath was aspirated and flushed. A JR4 catheter was advanced over the wire into the central aorta. The right coronary was selectively engaged and orthogonal views of the right coronary artery were obtained. The catheter was then exchanged over the wire, the sheath was aspirated and flushed. At this time an angled pigtail catheter was advanced across the aortic valve into the ventricle. Pressure measurements were obtained and pullback measurements were performed. The fire engine operator reviewed the films. The sheath was aspirated and flushed and a right femoral and iliac angiography was performed. The access site was amenable for closure and the area was reprepped with ChloraPrep and draped with sterile towels. The Angio-Seal closure device was used in standard technique. There was no hematoma and distal pulses were good. Diagnostic fluoroscopy time 1.5 minutes total fluoroscopy dose of 199 mGy Total contrast exposure 30 cc of Omnipaque FINDINGS: LV: 124/3 LVEDP: 8 Ao: 120/58 EF: Not assessed at cath but, 55% by transthoracic echo LM: Angiographically normal LAD: There is a small vessel is angiographically normal there are several daughter vessels that are small Ramus intermedius: There is a trivial the small ramus intermedius that is likely the culprit he has a string of supplies a high lateral ventricular myocardium LCx: A large dominant vessel gives rise to a left PDA. There is also collaterals seen from injecting the nondominant right this left PDA. The mother vessel has small trivial vessels with no high-grade epicardial stenosis RCA: There is a nondominant vessel. Collaterals from the right to the left PDA RFA/NIC: Right femoral and iliac arteries are normal Assessment: 1. Diffuse small vessel coronary artery 2. Non-ST elevation myocardial infarction secondary to small diffuse coronary artery disease no high-grade epicardial stenosis PLAN: 1. Medical management including dual antiplatelet therapy for 1 year, statin, SAMANTHA inhibitor/ARB and beta-lew 2. Cardiac rehab therapy 3. Keep in hospital through today or tomorrow Implants: Angioseal closure Anesthesia: moderate conscious sedation Surgeon / Physician: aLzara Morrison Car Cooper: none Estimated blood loss: none Specimens: none sent Condition: stable Disposition: floor - Medications / Follow-up Referrals: Patience Andersen MD [Physician] - (ooutpatient sleep study evaluation)
--- NOTE | 2017-07-22 10:07 | EKG Report ---
Stationary ECG Study [facility] Test Date: 07/22/2017 10:07:46 AM Pat Name: BRINA MENDES Department: Room: 264 Gender: F Mobile Home Set Up Person: AMAYA : 1950 Requested by: Lazara Morrison Order Number: [id number] Reading MD: ALVARO PANDEY Intervals [place] Rate: 67 P: 49 W[place]: 165 QRS: -32 QRSD: 101 T: 78 QT: 415 QTc: 430 Interpretive Statements SINUS RHYTHM at 67 bpm LEFT AXIS DEVIATION LOW QRS VOLTAGE IN PRECORDIAL LEADS PATTERN CONSISTENT WITH PULMONARY DISEASE INCOMPLETE RIGHT BUNDLE BRANCH BLOCK NST Electronically Signed On 07-25-17 16:40:34 CDT by ALVARO PANDEY [email or web address]
[2017-07-22] MEDS: LOSARTAN 25 MG TABLET PO SCH (10:54)
[2017-07-22] MEDS: DOCUSATE SODIUM 100 MG CAPSULE PO SCH ×2 (10:54→21:39)
[2017-07-22] MEDS: ROSUVASTATIN 20 MG TABLET PO SCH (21:39)
[2017-07-23 05:21] LABS: Basophils % 0.8 % (0.0-0.8); Eosinophils # 0.2 10*3/uL (0.0-0.87); Eosinophils % 2.9 % (0.00-10.9); Hematocrit 39.6 VOL% (35.7-47.0); Immature Granulocytes % 0.4 %; Immature Granulocytes Absolute 0.02 #; Lymphocytes # 1.6 10*3/uL (1.4-4.0); Lymphocytes % 30.2 % (21.3-54.2); Mean Corpuscular HGB Conc 32.8 GM/DL (32-36); Mean Corpuscular Hemoglobin 30 PG (27-34); Mean Platelet Volume 10.3 FL (9.6-12.0); Monocytes # 0.5 10*3/uL (0.11-0.8); Monocytes % 8.6 % (1.7-12.7); Neutrophils % 57.1 % (38.7-73.9); Platelet Count 221 T/CUMM (130-400); Red Blood Count 4.35 MC/CUMM (3.8-5.5); Red Cell Distribution Width 12.6 % (9.3-17.3); White Blood Count 5.3 T/CUMM (4-12)
[2017-07-23 06:05] LABS: Calcium 8.6 MG/DL (8.5-10.1); Osmolality,Calculated 285.8 MOS/KG (273-304); Potassium 3.9 MMOL/L (3.5-5.1); Troponin I Only 3.24 NG/ML (0.00-0.045)
--- NOTE | 2017-07-23 06:56 | Family Practice Progress Note ---
Family Practice - PN: Subj Interval history: Patient seen this morning. She slept well last night. Did not have any bhaskar chest pain and is on appropriate cardiac meds. Troponin did elevate significantly to 16. Appreciate cardiology services. Her vital signs were otherwise stable last night. We will continue to monitor. I will DC her Plaquenil for now as she states that this interferes with her metoprolol which I feel like she needs 07/21/2017: Patient seen this morning she is doing well had a good rest last night. Not having any bhaskar chest pain but she obviously had a small cardiac event. She is scheduled to have a cath tomorrow if she remains stable. And appreciate cardiology on this case. No changes otherwise. Her lab reveals a normal CBC, chemistry is normal as well including a creatinine 1.1. Her troponin bumped up to 16.9. 07/22/2017: Patient doing good status post cardiac cath. He is alert and oriented not have any chest pain at present. We will continue to closely monitor and plan on discharging her early in the morning. Exam (Progress Note) - Constitutional Vitals: Period Temp Pulse Resp BP Sys/Padilla Pulse Ox Last 24 Hr 96.3 F-99.3 F 59-79 16-20 95-133/52-77 93-100 Exam: Generally stable no acute distress HEENT neck supple trachea midline Lungs clear Cardiovascular rate regular no gallop or rub Extremities no clubbing cyanosis or edema Results - Labs CBC & BMP: 07/23/17 04:33 07/23/17 04:33 Assessment and Plan (1) Extremity numbness Status: Acute Assessment and plan: 07/19/2017: Unsure if this is a issue with hyperventilation. Nonetheless he could be atypical cardiac signs and will get cardiology to see Current Visit: Yes (2) Dyspnea on effort Status: Acute Assessment and plan: 07/19/2017: Oxygen as needed for shortness of breath. Current Visit: Yes (3) Chest pain Status: Acute Assessment and plan: 07/19/2017: Has been given appropriate medications at this time cardiology to see. Will monitor cardiac ices. Current Visit: Yes Quality Measures - VTE Contraindication to Pharmacological VTE Prophylaxis: High Risk of Bleeding Specialty Discharge - Follow Up or Referrals Follow up with: Patience Andersen MD [Physician] - (ooutpatient sleep study evaluation)
--- NOTE | 2017-07-23 07:37 | EKG Report ---
Stationary ECG Study [facility] Test Date: 07/23/2017 7:36:15 AM Pat Name: BRINA MENDES Department: Room: 264 Gender: F Support Worker: AMAYA : 1950 Requested by: Maria L Patrick Order Number: [id number] Reading MD: MARIA L PATRICK Intervals [place] Rate: 61 P: 66 W[place]: 146 QRS: 100 QRSD: 90 T: 81 QT: 411 QTc: 414 Interpretive Statements SINUS RHYTHM RIIGHT AXIS DEVIATION LOW QRS VOLTAGE IN PRECORDIAL LEADS PATTERN CONSISTENT WITH PULMONARY DISEASE Electronically Signed On 07-25-17 18:34:08 CDT by MARIA L PATRICK [email or web address]
[2017-07-23 08:06] VITALS: BP 93/71
[2017-07-23] MEDS: PANTOPRAZOLE 40 MG TABLET PO SCH (09:04)
[2017-07-23] MEDS: DOCUSATE SODIUM 100 MG CAPSULE PO SCH (09:04)
[2017-07-23] MEDS: ASPIRIN EC 81 MG TABLET PO SCH (09:04)
[2017-07-23] MEDS: TICAGRELOR 90 MG TABLET PO SCH (09:04)
[2017-07-23] MEDS: METOPROLOL SUCCINATE XL 50 MG TABLET PO SCH (09:05)
[2017-07-23] MEDS: LOSARTAN 25 MG TABLET PO SCH (09:05)
--- NOTE | 2017-07-23 09:05 | Discharge Summary ---
Hospital Course - Hospital Course Hospital Course: The patient to the hospital. Came in through the ER with chest pain, had some typical and atypical symptoms. Nonetheless her enzymes did bump to his house about 16 and she had a catheterization. The cath report revealed diffuse small vessel coronary disease and she had a non-ST elevation SC with diffuse small coronary disease and no high-grade epicardial stenosis. She was treated with dual antiplatelet therapy and medical management is going to be the plan of action. She will also be placed on an SAMANTHA inhibitor and beta-lew and statin. Will monitor closely and will plan on cardiac rehab therapy. It should be noted that she had an ejection fraction of 55% by transthoracic echocardiogram. Plan on seeing patient back in the clinic in approximately 1 month Diagnosis - Discharge Diagnosis (1) Extremity numbness Status: Resolved (2) Dyspnea on effort Status: Resolved (3) Chest pain Status: Resolved Specialty Discharge - Follow Up or Referrals Follow up with: Patience Andersen MD [Physician] - (ooutpatient sleep study evaluation) Discharge Plan - Discharge Data Disposition: Disch To Home/Self Care Condition at Discharge: Stable Discharge Diet: advance to your usual diet, heart healthy, low fat, low cholesterol Activity: increase activity as tolerated Hygiene: no restrictions Weight Bearing at Discharge: weight bear as tolerated Driving: no restrictions Contact your physician if you experience:: fever over 101, Shortness of breath, pain uncontrolled by pain medications - Discharge Medications New Losartan [Cozaar] 12.5 mg PO DAILY #30 tablet Rosuvastatin [Crestor] 40 mg PO BEDTIME #30 tablet Ticagrelor [Brilinta] 90 mg PO BID #60 tablet Aspirin EC Tab 81 mg PO DAILY tablet Metoprolol Succinate Xl [Toprol Xl] 50 mg PO BID #60 tablet Continue Hydroxychloroquine [Plaquenil] 200 mg PO BID Pantoprazole Tab [Protonix Tab] 40 mg PO QAM Discontinued Metoprolol Succinate Xl [Toprol Xl] 25 mg PO DAILY - Follow Up or Referral Follow Up: Patience Andersen MD [Physician] - (ooutpatient sleep study evaluation) - Forms/Instructions Instructions: Angina (GEN), Myocardial Infarction (GEN), Coronary Artery Disease (GEN), Left Heart Catheterization (DC), Heart Healthy Diet (GEN) Exam - Constitutional Vitals: Period Temp Pulse Resp BP Sys/Padilla Pulse Ox Last 24 Hr 96.3 F-99.3 F 63-74 16-20 93-133/52-77 93-99 Discharge Results Procedures and tests throughout hospitalization: Pending Orders 07/22/17 07:46 CL heart Routine Labs on day of discharge: Labs from last 24 hours 07/23/17 07/23/17 04:33 04:33 WBC 5.3 RBC 4.35 Hgb 13.0 Hct 39.6 MCV 91.0 MCH 30 MCHC 32.8 RDW 12.6 Plt Count 221 MPV 10.3 Neut % (Auto) 57.1 Lymph % (Auto) 30.2 [place] % (Auto) 8.6 Eos % (Auto) 2.9 Baso % (Auto) 0.8 Neut # (Auto) 3.0 Lymph # (Auto) 1.6 [place] # (Auto) 0.5 Eos # (Auto) 0.2 Baso # (Auto) 0.0 Immature Gran % 0.4 Nucleated RBC % 0.0 Immature Gran # 0.02 Nucleated RBCs # 0.00 Immature Plt Fraction 0.0 Sodium 144 Potassium 3.9 Chloride 112 H Carbon Dioxide 25 Anion Gap 10.9 BUN 14 Creatinine 0.90 GFR Calculation 80 BUN/Creatinine Ratio 15.00 Glucose 89 Calculated Osmolality 285.8 Calcium 8.6 Troponin I 3.240 H D DS: Provider Date of admission: 07/19/17 11:31 Primary care physician: . No PCP Attending physician on admission: Harvey Arreguin DO Consults: 07/19/17 12:34 Consult to Case Mgmt/Social Srvs [CONS] Routine Reason for Case Mgmt/Social Srvs: Discharge Planning 07/19/17 14:57 Consult to Physician [CONS] Routine Comment: Consulting Provider: Consult to Specialist Group: Cardiology When should Consulting Provider be notified: Now 07/19/17 17:57 Consult to Physician [CONS] Routine Comment: elevated troponin Consulting Provider: Cardiology - [facility] 07/19/17 18:16 Consult to Cardiac Rehabilitation [CONS] Routine Reason for Cardiac Rehabilitation: Risk Factor Modification 07/22/17 08:45 Consult to Cardiac Rehabilitation [CONS] Routine Reason for Cardiac Rehabilitation: Risk Factor Modification Other Consult Comment: Evaluate and recommend Discharging clinician: Harvey Arreguin DO
--- NOTE | 2017-07-23 10:50 | Cardiology Progress Note ---
I, Ella Sapp NP, am scribing for, and in the presence of, Lynn Santoro NP 10:50. Assessment and Plan - Time spent with patient Time spent with patient: Greater than 30 minutes (Record review, assessment, documentation) Cardiology - PN: Subj Interval history: LARGE ENGINE ASSEMBLER: wayne Chin SUMMARY: Ms. Espitia is a 67-year-old female, presenting with non-STEMI. Chest pain resolved with medical management. There is no significant arrhythmia, angina or hemodynamic instability. Echocardiogram revealed distal anterolateral wall motion abnormality, preserved ejection fraction. She had minimal EKG changes. LHC done 07/22/17 results: 1. Diffuse small vessel coronary artery 2. Non-ST elevation myocardial infarction secondary to small diffuse coronary artery disease no high-grade epicardial stenosis. The patient is preparing for discharge home today, however her blood pressure has not tolerated medication changes. It is been running systolically in the 90s, and diastolically in the 60s. She has been asymptomatic with this, but I plan to change her medications today prior to discharge. Both Cozaar and Toprol-XL were held by nursing staff this morning. We will monitor her until early afternoon in order to recheck her blood pressure. DISCHARGE MEDICATIONS: Brilinta 90mg BID Losartan 12.5mg PO DAILY Crestor 40mg PO QHS ASA 81mg DAILY Carvedilol 3.125mg PO BID IMPRESSION/PLAN: 1. NSTEMI - ASA, Brilinta, beta lew, ARB. 2. OBESITY - dietary counseling prior to discharge, encourage weight loss. 3. SLEEP DISORDER - will need outpatient sleep study. 4. SOB - resolved, D dimer negative. I have interviewed and examined the patient personally. Discussed findings with nurse practitioner Sekou. I agree with the assessment and plan. Patient will be discharged home with close follow-up. Exam (Progress Note) - Constitutional Vitals: Period Temp Pulse Resp BP Sys/Padilla Pulse Ox Last 24 Hr 96.3 F-99.3 F 63-74 16-20 93-125/52-75 93-99 Exam: General: Appears well with no apparent distress. Pleasant and cooperative. Appears comfortable. HEENT: PERRL, normocephalic, atraumatic. Mucous membranes moist. No jaundice noted. Conjunctiva moist and clear, sclerae anicteric. Neck: No JVD/HJR, no thyromegaly or lymphadenopathy noted. No carotid bruit appreciated. Cardiac: Regular rate and rhythm. No murmur rub or gallop. PMI is nondisplaced. Lungs: Clear to auscultation without accessory muscle use to assist the respiratory pattern. Oxygen in use via nasal cannula. Abdomen: Soft, bowel sounds normoactive. Nontender and nondistended. No abdominal bruit or thrill noted. No masses noted. Musculoskeletal: No fluid collection. Full range of motion is noted. Right groin dressing removed, area is soft, no hematoma, no bruit auscultated, right pedal pulse palpable. Extremities: No clubbing, cyanosis noted. No edema noted. Upper extremity pulses 2+. Lower extremity pulses 2+. Capillary refill less than 3 seconds. Skin: No unusual lesions or rashes. No skin breakdown appreciated. Neuro: Awake, alert and oriented 3. Moves all extremities well without hemiparesis or paralysis. No essential tremor is appreciated. Result/EKG - Labs CBC & BMP: 07/23/17 04:33 07/23/17 04:33 Lab Results: I have reviewed the past 24 hour labs Labs: Laboratory Results - last 24 hr 07/23/17 07/23/17 04:33 04:33 WBC 5.3 RBC 4.35 Hgb 13.0 Hct 39.6 MCV 91.0 MCH 30 MCHC 32.8 RDW 12.6 Plt Count 221 MPV 10.3 Neut % (Auto) 57.1 Lymph % (Auto) 30.2 [place] % (Auto) 8.6 Eos % (Auto) 2.9 Baso % (Auto) 0.8 Neut # (Auto) 3.0 Lymph # (Auto) 1.6 [place] # (Auto) 0.5 Eos # (Auto) 0.2 Baso # (Auto) 0.0 Immature Gran % 0.4 Nucleated RBC % 0.0 Immature Gran # 0.02 Nucleated RBCs # 0.00 Immature Plt Fraction 0.0 Sodium 144 Potassium 3.9 Chloride 112 H Carbon Dioxide 25 Anion Gap 10.9 BUN 14 Creatinine 0.90 GFR Calculation 80 BUN/Creatinine Ratio 15.00 Glucose 89 Calculated Osmolality 285.8 Calcium 8.6 Troponin I 3.240 H D - EKG EKG results: interpreted by me, sinus rhythm Quality Measures - VTE Contraindication to Pharmacological VTE Prophylaxis: High Risk of Bleeding Specialty Discharge - Follow Up or Referrals Follow up with: Patience Andersen MD [Physician] - (ooutpatient sleep study evaluation) Lazara Morrison DO [Physician] - 1 Week (Pt. instructed to keep a BP log prior to follow up, EKG, BMP with mag, CBC prior to appt.) Yvan Huertas Bonnie E, NP, personally performed the services described in this documentation, ascribed by Ella Sapp NP in my presence, and it is both accurate and complete .
[2017-07-23] MEDS ORDERED: CARVEDILOL 3.125 MG TABLET PO SCH (21:00)
== END 2017-07-23 12:20 | disposition home or self-care (01) | DRG 282 ==
LOC: N.ED 10:08 → N.EDINP 11:31 → N.TELES 11:55
PROVIDERS: ADMIT Family Medicine; ATTEND Family Medicine
PROC: CLCCHCL (ICD-10-PCS; 2017-07-22 08:45)